=== PATIENT | female | born 1990 | race Two or more races ===

== ENCOUNTER 2017-11-12 08:00 | Inpatient (IN) | payer OTHER ==
[2017-11-12] VITALS (14 sets, daily range): BP systolic 92–118; BP diastolic 55–69
[~2017-11-12] VITALS: Ht 172.7 cm; Wt 85.7 kg
[~2017-11-12 08:00] MED LIST: Dexamethasone 20mg/5ml IVP ONE; ceFAZolin sod 1 GM in NS 55 ML IVPB ONE
[2017-11-12] MEDS ORDERED: NKM (08:37)
[2017-11-12] MEDS ORDERED: Lidocaine 1% Plain 30 ml INJ ONE ×2 (09:12→12:40)
--- NOTE | 2017-11-12 09:14 | Pre-Procedure Note/Attestation ---
Pre-Procedure Note/Attestation Complete Prior to Procedure Planned Procedure: not applicable Procedure Narrative: L4-5 microdiscectomy Indications for Procedure Pre-Operative Diagnosis: traumatic HNP Attestation I attest that I discussed the nature of the procedure; its benefits; risks and complications; and alternatives (and the risks and benefits of such alternatives ), prior to the procedure, with the patient (or the patient's legal customer solutions representative). I attest that, if there was a reasonable possibility of needing a blood transfusion, the patient (or the patient's legal customer solutions representative) was given the [facility] standardized written summary, pursuant to the [place] Blood Safety Act ([place] Health and Safety Code # 1645, as amended). I attest that I re-evaluated the patient just prior to the surgery and that there has been no change in the patient's H&P, except as documented below: MARTHA GARCIA Nov 12, 2017 09:14
[2017-11-12] MEDS ORDERED: LORazepam Inj 2mg/ml 1ml IV PRN (09:15)
[2017-11-12] MEDS ORDERED: oxyCODONE HCL/Acetaminophen 5/325mg ORAL PRN (09:15)
[2017-11-12] MEDS ORDERED: HYDROcodone/Acetamin 7.5/325 tab ORAL PRN (09:15)
[2017-11-12] MEDS ORDERED: DiphenhydrAMINE 50mg/ml Inj IVP PRN (09:15)
[2017-11-12] MEDS ORDERED: Metoclopramide 10mg/2ml Inj IVP PRN (09:15)
[2017-11-12] MEDS ORDERED: Ketorolac 30mg Inj IV PRN ×2 (09:15)
[2017-11-12] MEDS ORDERED: LR 1000ml 1,000 ML IVLG SCH (09:15)
[2017-11-12] MEDS ORDERED: Atropine Inj 1mg/10ml Syr IV PRN (09:15)
[2017-11-12] MEDS ORDERED: Norco 5mg/325mg tab ORAL PRN (09:15)
[2017-11-12] MEDS ORDERED: Labetalol 5mg/ml 20ml vial IV PRN (09:15)
[2017-11-12] MEDS ORDERED: Hydromorphone 0.5mg/0.5ml inj IVP PRN (09:15)
[2017-11-12] MEDS ORDERED: Midazolam 2mg/2ml Inj IVP PRN (09:15)
[2017-11-12] MEDS ORDERED: fentaNYL 100 mcg/2 mL IV PRN (09:15)
[2017-11-12] MEDS ORDERED: Acetaminophen (Non formulary) 100 ML IV ONE (09:15)
--- NOTE | 2017-11-12 09:16 | Anethesia Preoperative Eval ---
Anesthesia Pre-op PMH/ROS General Date of Evaluation: Nov 12, 2017 Time of Evaluation: 09:43 Anesthesiologist: Branden ASA Score: ASA 2 Mallampati Score Class I : Soft palate, uvula, fauces, pillars visible Class II: Soft palate, uvula, fauces visible Class III: Soft palate, base of uvula visible Class IV: Only hard plate visible Mallampati Classification: Class I Surgeon: Bhakti Diagnosis: Back Pain Surgical Procedure: L4-5 Microdiscectomy Anesthesia History: none Family History: no anesthesia problems Allergies: Coded Allergies: No Known Allergies (Unverified , 11/11/17) Medications: see eMAR Past Medical History Cardiovascular: Reports: other - HL Neurologic/Psychiatric: Reports: depression/anxiety Anesthesia Pre-op Phys. Exam Physician Exam Last Vital Signs Date Time Temp Pulse Resp B/P (MAP) Pulse Ox O2 Delivery O2 Flow Rate FiO2 11/12/17 08:49 98.1 62 20 102/59 (73) 98 98.1 11/12/17 08:38 Room Air Constitutional: NAD Neurologic: CN 2-12 intact Cardiovascular: RRR Respiratory: CTA Gastrointestinal: S/NT/ND Airway Exam Mallampati Score: Class II MO: full ROM: full Teeth: intact Anesthesia Pre-op A/P Labs Urine Test Test 11/12/17 08:15 Urine HCG, Qualitative Negative (NEGATIVE) Risk Assessment & Plan Assessment: ASA 2 Plan: GA, SED, GlideScope Go Pre-Antibiotics Dru Grams Ancef IV Given Within 1 Hr of Incision: Yes Time Given: 10:26 Bruce Otero MD Nov 12, 2017 09:16
[2017-11-12] MEDS ORDERED: Lidocaine 1% MPF 10mg/ml 5ml ONE (09:17)
[2017-11-12] MEDS ORDERED: Sodium Chloride 10ml vial INJ ONE (09:17)
[2017-11-12] MEDS ORDERED: fentaNYL 100 mcg/2 mL IV ONE ×3 (09:18→12:19)
[2017-11-12] MEDS ORDERED: Propofol 1,000mg/ 100ml btl IV ONE (09:30)
[2017-11-12] MEDS ORDERED: Sterile Water Irrig 1000ml IRRIG ONE (09:30)
[2017-11-12] MEDS ORDERED: LR 1000ml ONE (09:30)
[2017-11-12] MEDS ORDERED: NS Irrig 1000ml ONE (09:30)
[2017-11-12] MEDS ORDERED: Zemuron 50mg/5ml Inj IV ONE (09:39)
[2017-11-12] MEDS ORDERED: Thrombin 5000 units TOPIC ONE (09:41)
[2017-11-12] MEDS ORDERED: Gelfoam Size TOPIC ONE (09:41)
[2017-11-12] MEDS ORDERED: Bacitracin 50000 Units Vial ONE (09:42)
--- NOTE | 2017-11-12 11:07 | 48 Hour Post Anesthesia Eval ---
Post Anesthesia Evaluation Procedure: L4-5 Microdiscectomy Date of Evaluation: Nov 12, 2017 Time of Evaluation: 14:49 Blood Pressure Systolic: 106 0: 72 Pulse Rate: 73 Respiratory Rate: 18 Temperature (Fahrenheit): 98.2 O2 Sat by Pulse Oximetry: 97 Airway: patent Nausea: No Vomiting: No Pain Intensity: 2 Hydration Status: adequate Cardiopulmonary Status: Stable Mental Status/LOC: patient returned to baseline Follow-up Care/Observations: 0 Post-Anesthesia Complications: 0 Follow-up care needed: ready to discharge Bruce Otero MD Nov 12, 2017 11:07
--- NOTE | 2017-11-12 11:07 | Immediate Post-Op Evaluation ---
Immediate Post-Op Evalulation Immediate Post-Op Evalulation Procedure: L4-5 Microdiscectomy Date of Evaluation: Nov 12, 2017 Time of Evaluation: 12:49 IV Fluids: 1000 LR Blood Products: 0 Estimated Blood Loss: 10 Urinary Output: 0 Blood Pressure Systolic: 114 Blood Pressure Diastolic: 63 Pulse Rate: 72 Respiratory Rate: 16 O2 Sat by Pulse Oximetry: 100 Temperature (Fahrenheit): 97.6 Pain Score (1-10): 2 Nausea: No Vomiting: No Complications 0 Patient Status: awake, reacts, patent, extubated, none Hydration Status: adequate Dru Grams Ancef IV Given Within 1 Hr of Incision: Yes Time Given: 10:26 Bruce Otero MD Nov 12, 2017 11:07
[2017-11-12] MEDS ORDERED: Glycopyrrolate 0.2mg/ml 1ml Vial ONE (11:55)
[2017-11-12] MEDS ORDERED: Naloxone 0.4mg/ml Inj ONE (12:03)
[2017-11-12] MEDS ORDERED: D5 1/2NS 1,000 ML IV SCH (12:12)
--- NOTE | 2017-11-12 12:12 | Brief Operative Note ---
Immediate Post Operative Note Operative Note Pre-op Diagnosis: traumatic HNP Procedure: Hemilaminotomy L4 Microdiscectomy L4-L5 Magnification Local Xray Post-op Diagnosis: same as pre-op Findings: consistent w/pre-op dx studies Surgeon: Bhakti ALVAREZ Pet House Sitter: Kari MAN Anesthesiologist: Branden ALVAREZ Anesthesia: general Specimen: yes Complications: none Condition: stable Fluids: anesthesia Estimated Blood Loss: minimal Drains: none Implant(s) used?: No MARTHA GARCIA Nov 12, 2017 12:12
--- NOTE | 2017-11-12 15:07 | Diagnostic Imaging Report ---
Indication: Intraoperative imaging; back pain. Findings: Fluoroscopic imaging obtained intraoperatively. Fluoroscopic time: 5.8 seconds Number fluoroscopic images: Single image obtained. Instrumentation noted posterior to the L4-5 disc. IMPRESSION: Intraoperative imaging
[2017-11-12] MEDS ORDERED: Naloxone 0.4mg/ml Inj IVP PRN (15:10)
[2017-11-12] MEDS ORDERED: Chloraseptic Spray 20mL Bottle ORAL ONE (15:27)
[2017-11-12] MEDS ORDERED: LORazepam 0.5mg tab ORAL PRN (15:30)
[2017-11-12] MEDS ORDERED: oxyCODONE 5mg IR tab ORAL PRN ×2 (15:30)
[2017-11-12] MEDS ORDERED: Chloraseptic Spray 20mL Bottle ORAL PRN (15:30)
[2017-11-12] MEDS ORDERED: TransDerm Scop 1mg/72HR Patch TDERMAL SCH (16:28)
[2017-11-12] MEDS ORDERED: SOMA350 MG PO (18:04)
[2017-11-12] MEDS ORDERED: PERCOCET 10-321 EACH ORAL (18:04)
[2017-11-12] MEDS ORDERED: ceFAZolin sod 1 GM in D5W 55 ML IV SCH (18:30)
[2017-11-12] MEDS ORDERED: Sodium Chloride 500ML 500 ML IV ONE (20:00)
--- NOTE | 2017-11-12 21:00 | Operative Note - Dictated ---
DATE OF OPERATION: 11/12/2017 SURGEON: Alvin Ya, Ph.D., M.D. [employer] SUPERINTENDENT: MAGDA Skinner. ANESTHESIOLOGIST: Bruce Otero M.D. ANESTHESIA: General with intubation. 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 POSTOPERATIVE DIAGNOSIS: Lumbar L4-L5 posttraumatic herniated nucleus pulposus with radiculopathy. OPERATIVE PROCEDURE: 1. L4-L5 microdiskectomy with bilateral posterior decompression. 2. Hemilaminotomy bilateral inferior L4. 3. Local anesthetic applied by surgeon. 4. Fluoroscopic imaging. PROCEDURE IN DETAIL: The patient was brought to the operating room and in the supine position, general anesthesia with intubation was induced. IV antibiotics and intravenous Decadron were administered 30 minutes prior to incision time. The patient was carefully turned and positioned in the prone position. Lumbodorsal spine was sterilely prepped and spinal needle was placed midline into the subcutaneous tissue only. A cross-table fluoroscopic image obtained and interpreted by surgeon for demonstration of incision level placement. Needle was removed. Back was re-sterilely prepped and draped free in usual sterile fashion. A longitudinal incision at the appropriate interval was sharply placed through dermis and epidermis. Electrocautery dissection was carried through approximately 3 inches of subcutaneous tissue to the level of lumbodorsal fascia, incised right and left of midline, over the respective lamina of L4 to the pars interarticularis and superior L5. Marker was placed. Cross-table imaging obtained demonstrating the correct level for further dissection. Level was marked. The bilateral hemilaminotomy of inferior L4 with resection of the ligamentum flavum was undertaken. Marker was placed and a cross-table image obtained demonstrating the correct level and position of the disc. Dissection was carried right lateral to the exiting nerve root and dural tube with a large subligamentous herniated nucleus polyposis identified. Annulotomy performed. Microdiscectomy. Disk space irrigated. No further fragments identified. Full decompression. Bleeding bone cauterized with application of sterile wax. No dural tears or leaks anytime during the procedure. Wound re-irrigated with antibiotic-containing saline. FloSeal applied. Sequential reapproximation of the lumbodorsal fascia, subcutaneous tissue in multiple layers through dermis and epidermis. Surgical strips were applied. Local anesthetic 1% lidocaine with epinephrine applied at the dermal/subcutaneous interval bilateral lateral aspects of the wound. Sterile bandage placed and maintained in place with tape. The patient was carefully turned from the prone to supine position on the transport bed where she was awakened and extubated in the operating room and transported to postop recovery in good stable condition. ESTIMATED BLOOD LOSS: Minimal. COMPLICATIONS: None. POSTOP CONDITION: Good/stable. Disc fragments to pathology. Alvin Ya M.D. DR: BLANCO JOB#: [id number] CC:
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
== END 2017-11-12 22:30 | disposition home or self-care (01) | DRG 520 ==
LOC: SUR 08:00 → EDSTATUS 09:00 → 3E 12:14
PROC: 0SB20ZZ Excision of Lumbar Vertebral Disc, Open Approach (ICD-10-PCS; principal; 2017-11-12 09:00)
PROC: 01NB0ZZ Release Lumbar Nerve, Open Approach (ICD-10-PCS; principal; 2017-11-12 09:00)
DX: M51.16 Intervertebral disc disorders with radiculopathy, lumbar region (principal); V89.2XXS Person injured in unspecified motor-vehicle accident, traffic, sequela; M48.061 Spinal stenosis, lumbar region without neurogenic claudication; F41.9 Anxiety disorder, unspecified
CPT/HCPCS: 72020; 76000; 81025; 94003; 94150; 94760; J2405; J2765